=== PATIENT | female | born 1980 | race Caucasian/White ===

== ENCOUNTER 2018-11-04 19:59 | Emergency (ER) | payer BC ==
[2018-11-04 20:19] VITALS: BP 135/89
--- NOTE | 2018-11-04 20:30 | UC ---
Lower Extremity/Ankle HPI - HPI Summary HPI Summary: 38 yo female presents with RIGHT ankle pain. Pt tells me that last night she was carrying a lot of bags into her house and slipped on the snow/ice and inverted her right ankle. She has fractured this ankle and sprained it many times in the past. She rested, elevated, and iced the ankle last night and earlier today but the pain and swelling have continued. She is ambulatory without assistance. She has been taking ibuprofen with mild relief. Denies numbness or tingling. - History of Current Complaint Chief Complaint: UCLowerExtremity Stated Complaint: ANKLE INJURY Time Seen by Provider: 11/04/18 20:30 Hx Obtained From: Patient Hx Last Menstrual Period: NOW Onset/Duration: Sudden Onset Severity Initially: Moderate Severity Currently: Moderate Pain Intensity: 5 Pain Scale Used: 0-10 Numeric Aggravating Factor(s): Standing, Ambulation Alleviating Factor(s): Rest, Elevation Able to Bear Weight: Yes - Allergies/Home Medications Allergies/Adverse Reactions: Allergies Allergy/AdvReac Type Severity Reaction Status Date / Time No Known Allergies Allergy Verified 11/04/18 20:18 Home Medications: Home Medications Ibuprofen TAB* [Advil TAB*] 200 mg PO ONCE PRN 11/04/18 [History Confirmed 11/04] PMH/Surg Hx/FS Hx/Imm Hx - Additional Past Medical History Additional PMH: None - Surgical History Surgical History: None - Family History Known Family History: Positive: None - Social History Occupation: Employed Full-time Lives: With Family Alcohol Use: Occasionally Substance Use Type: None Smoking Status (MU): Never Smoked Tobacco Review of Systems All Other Systems Reviewed And Are Negative: Yes Constitutional: Positive: Negative Skin: Positive: Negative Respiratory: Positive: Negative Cardiovascular: Positive: Negative Neurovascular: Positive: Negative Musculoskeletal: Positive: Other: - Right ankle pain Neurological: Positive: Negative Psychological: Positive: Negative Physical Exam - Summary Physical Exam Summary: GENERAL: NAD. WDWN. No pain distress. SKIN: No rashes, sores, lesions, or open wounds. CHEST: No accessory muscle use. Breathing comfortably and in no distress. CV: Pulses intact PT and DP. Cap refill <2seconds MSK: RIGHT ANKLE: Mild TTP over lateral malleolus and ATFL. Increased laxity with inversion, but pt states this is her baseline due to previous injuries. FROM with mild pain. Mild edema overlying lateral malleolus. Strength 5/5. NEURO: Alert. Sensations intact and symmetric B/L LEs PSYCH: Age appropriate behavior. Triage Information Reviewed: Yes Vital Signs: Initial Vital Signs Temp 97.7 F 11/04/18 20:15 Pulse 63 11/04/18 20:15 Resp 16 11/04/18 20:15 BP 135/89 11/04/18 20:15 Pulse Ox 100 11/04/18 20:15 Vital Signs Reviewed: Yes Lower Extremity Course/Dx - Course Course Of Treatment: Right ankle XR: No radiologist reading after 1800, therefore wet read by myself is negative for fracture. Discussed results with pt and advised RICE and gel splint. She declined crutches. F/u with orthopedics prn. - Differential Dx/Diagnosis Provider Diagnosis: Right ankle sprain Discharge - Sign-Out/Discharge Documenting (check all that apply): Patient Departure All imaging exams completed and their final reports reviewed: No - Discharge Plan Condition: Stable Disposition: HOME Patient Education Materials: Ankle Sprain (ED) Referrals: No Primary Care Phys,NOPCP [Primary Care Provider] - Carlitos Lopez MD [Medical Doctor] - If Needed Additional Instructions: If you develop a fever, shortness of breath, chest pain, new or worsening symptoms - please call your PCP or go to the ED. Your blood pressure was high at todays visit. Please see your primary provider within 4 weeks for recheck and re-evaluation. 1) Rest, Ice, and elevate your ankle as much as possible 2) Use the STAR wrap and gel splint as needed for comfort and support 3) If your symptoms persist, please follow up with Dr. Lopez for further evaluation - Billing Disposition and Condition Condition: STABLE Disposition: Home
--- NOTE | 2018-11-05 20:45 | UC ---
- Progress Note Progress Note: RADIOLOGY REPORT REVIEWED: SOFT TISSUE SWELLING, NO FRACTURE IS SEEN. NO CHANGE IN MGMT Course/Dx - Diagnoses Provider Diagnoses: Right ankle sprain Discharge - Sign-Out/Discharge Documenting (check all that apply): Post-Discharge Follow Up All imaging exams completed and their final reports reviewed: Yes - Discharge Plan Condition: Stable Disposition: HOME Patient Education Materials: Ankle Sprain (ED) Referrals: Carlitos Lopez MD [Medical Doctor] - If Needed No Primary Care Phys,NOPCP [Primary Care Provider] - Additional Instructions: If you develop a fever, shortness of breath, chest pain, new or worsening symptoms - please call your PCP or go to the ED. Your blood pressure was high at todays visit. Please see your primary provider within 4 weeks for recheck and re-evaluation. 1) Rest, Ice, and elevate your ankle as much as possible 2) Use the STAR wrap and gel splint as needed for comfort and support 3) If your symptoms persist, please follow up with Dr. Lopez for further evaluation - Billing Disposition and Condition Condition: STABLE Disposition: Home
== END 2018-11-04 20:58 | disposition home or self-care (01) ==
LOC: UCEAST 19:59
DX: S93.401A Sprain of unspecified ligament of right ankle, initial encounter (principal); W18.40XA Slipping, tripping and stumbling without falling, unspecified, initial encounter; Y92.008 Other place in unspecified non-institutional (private) residence as the place of occurrence of the external cause
CPT/HCPCS: 99203; G0463